=== PATIENT | male | born 1975 | race Caucasian/White ===

== ENCOUNTER 2024-04-11 13:04 | Emergency (ER) | payer OTHER ==
[~2024-04-11] VITALS: Ht 182.9 cm; Wt 81.7 kg
[~2024-04-11 13:04] MED LIST: ALBU90OI; BENZ100A PO; Clotrimazole-Be15 GM TP; HYDACE25S PR; IBUP800 PO; LISI20 PO; Mucinex600 MG PO; Norco 5-325 Ta1 EACH PO; OLAN10 PO; PANT40 PO; SERT100 PO; WIXELA 250-501 EAC1; ZYRTEC10 M2 PO
[2024-04-11] MEDS ORDERED: Albuterol 2.5 MG/3 ML VIAL INH SCH (13:15)
[2024-04-11] MEDS ORDERED: PredniSONE 20 MG Tab PO ONE (13:15)
[2024-04-11] MEDS ORDERED: Ipratropium/Albuterol SulF 2.5-0.5MG/3 ML Amp INH ONE (13:15)
[2024-04-11 13:45] LABS: BASOPHILS ABSOLUTE AUTO 0.02 K/mm3 (0.00-0.23); BASOPHILS PERCENT AUTO 0 % (0-2); EOSINOPHILS ABSOLUTE AUTO 0.28 K/mm3 (0.00-0.68); EOSINOPHILS PERCENT AUTO 4 % (0-6); Hematocrit 38.8 % (37.0-53.0); Hemoglobin 13.2 g/dL (13.5-17.5); IMMATURE GRAN ABSOLUTE AUTO 0.03 K/mm3 (0.00-0.10); IMMATURE GRAN PERCENT AUTO 0 % (0-1); LYMPHOCYTES ABSOLUTE AUTO 1.67 K/mm3 (0.84-5.20); LYMPHOCYTES PERCENT AUTO 25 % (21-46); MONOCYTES ABSOLUTE AUTO 0.47 K/mm3 (0.16-1.47); MONOCYTES PERCENT AUTO 7 % (4-13); Mean Corpuscular HGB 30.8 pg (26.0-34.0); Mean Corpuscular Volume 91 fL (80-100); Mean Platelet Volume 9.3 fL (9.1-12.4); NEUTROPHILS ABSOLUTE AUTO 4.27 K/mm3 (1.96-9.15); NEUTROPHILS PERCENT AUTO 63 % (41-73); Platelet Count 227 K/mm3 (150-400); RDW Coefficient Variation 12.9 % (11.7-14.2); RDW Standard Deviation 42.8 fL (35.1-46.3); Red Blood Cell Count 4.28 M/mm3 (4.30-5.90); White Blood Cell Count 6.74 K/mm3 (4.00-11.30)
[2024-04-11 14:07] LABS: Albumin, Blood 3.1 g/dL (3.4-5.0); Albumin/Globulin Ratio 0.9 (0.8-1.8); Bilirubin, Total 0.4 mg/dL (0.1-1.0); Bun/Creatinine Ratio 9.2 (12.0-20.0); Calcium, Blood 8.2 mg/dL (8.5-10.1); Creatinine, Blood 0.76 mg/dL (0.60-1.20); Globulin, Blood 3.6 g/dL (2.2-4.0); Magnesium, Blood 1.8 mg/dL (1.6-2.4); Potassium, Blood 3.5 mmol/L (3.5-5.5); Total Protein, Blood 6.7 g/dL (6.4-8.2)
[2024-04-11 14:48] LABS: Influenza A, PCR NEGATIVE (NEGATIVE); Influenza B, PCR NEGATIVE (NEGATIVE); Resp Syncytial Virus, PCR NEGATIVE (NEGATIVE); SARS-Cov-2 (COVID-19) PCR, MMC NEGATIVE (NEGATIVE)
[2024-04-11] MEDS ORDERED: Trimethoprim/Sulfamethoxazole DS Tab PO ONE (15:05)
[2024-04-11] MEDS ORDERED: Azithromycin 250 MG Tab PO ONE (15:05)
[2024-04-11] MEDS ORDERED: Ketorolac Tromethamine 30mg Vial IV ONE (15:10)
[2024-04-11] MEDS ORDERED: PRED20 PO (15:14)
[2024-04-11] MEDS ORDERED: AZIT250 PO (15:14)
[2024-04-11] MEDS ORDERED: ALBU90OI INH (15:14)
[2024-04-11] MEDS ORDERED: IPRAT-ALBUT 0.5-3 ML INH (15:14)
[2024-04-11] MEDS ORDERED: Ventolin5 MG/1 ML INH (15:14)
[2024-04-11] MEDS ORDERED: SULTRIDS PO (15:14)
[2024-04-11 15:43] VITALS: BP 130/72
== END 2024-04-11 15:43 | disposition home or self-care (01) ==
LOC: ER 13:04
PROVIDERS: Student in an Organized Health Care Education/Training Program
DX: J44.1 Chronic obstructive pulmonary disease with (acute) exacerbation (principal); L03.115 Cellulitis of right lower limb; Z79.899 Other long term (current) drug therapy; F43.10 Post-traumatic stress disorder, unspecified; F17.210 Nicotine dependence, cigarettes, uncomplicated
CPT/HCPCS: 0241U; 71045; 80053; 83735; 83880; 84145; 85025; 94644; 94664; A9270; J1885

== ENCOUNTER 2025-02-05 09:09 | Emergency (ER) | payer OTHER ==
[~2025-02-05] VITALS: Ht 182.9 cm; Wt 74.8 kg
[~2025-02-05 09:09] MED LIST changes: +ALBU90OI INH; +AZIT250 PO; +IPRAT-ALBUT 0.5-3 ML INH; +PRED20 PO; +SULTRIDS PO; +Ventolin5 MG/1 ML INH
[2025-02-05] MEDS ORDERED: Ondansetron HCl 2 MG / ML 2ML Vial IV PRN (09:50)
[2025-02-05] MEDS ORDERED: Ipratropium/Albuterol SulF 2.5-0.5MG/3 ML Amp INH ONE (09:55)
[2025-02-05] MEDS ORDERED: MethylPREDNISolone Sod Succ 125 MG Vial IV ONE (09:55)
[2025-02-05 09:56] LABS: BASOPHILS ABSOLUTE AUTO 0.04 K/mm3 (0.00-0.23); BASOPHILS PERCENT AUTO 1 % (0-2); EOSINOPHILS ABSOLUTE AUTO 0.17 K/mm3 (0.00-0.68); EOSINOPHILS PERCENT AUTO 3 % (0-6); Hematocrit 37.3 % (37.0-53.0); Hemoglobin 12.3 g/dL (13.5-17.5); IMMATURE GRAN ABSOLUTE AUTO 0.02 K/mm3 (0.00-0.10); IMMATURE GRAN PERCENT AUTO 0 % (0-1); LYMPHOCYTES PERCENT AUTO 23 % (21-46); MONOCYTES ABSOLUTE AUTO 0.56 K/mm3 (0.16-1.47); MONOCYTES PERCENT AUTO 9 % (4-13); Mean Corpuscular Volume 94 fL (80-100); Mean Platelet Volume 9.6 fL (9.1-12.4); NEUTROPHILS ABSOLUTE AUTO 4.02 K/mm3 (1.96-9.15); NEUTROPHILS PERCENT AUTO 65 % (41-73); Platelet Count 213 K/mm3 (150-400); RDW Standard Deviation 44.9 fL (35.1-46.3); Red Blood Cell Count 3.97 M/mm3 (4.30-5.90); White Blood Cell Count 6.21 K/mm3 (4.00-11.30)
[2025-02-05 10:21] LABS: Albumin, Blood 3.1 g/dL (3.4-5.0); Albumin/Globulin Ratio 0.9 (0.8-1.8); Bilirubin, Total 0.1 mg/dL (0.1-1.0); Bun/Creatinine Ratio 20.4 (12.0-20.0); Calcium, Blood 8.5 mg/dL (8.5-10.1); Creatinine, Blood 0.74 mg/dL (0.60-1.20); Globulin, Blood 3.4 g/dL (2.2-4.0); Potassium, Blood 4.5 mmol/L (3.5-5.5); Total Protein, Blood 6.5 g/dL (6.4-8.2)
[2025-02-05] MEDS ORDERED: DOXY100 PO (11:42)
[2025-02-05] MEDS ORDERED: PRED20 PO (11:42)
[2025-02-05 11:45] VITALS: BP 133/82
== END 2025-02-05 11:54 | disposition home or self-care (01) ==
LOC: ER 09:09
PROVIDERS: Emergency Medicine
DX: J44.1 Chronic obstructive pulmonary disease with (acute) exacerbation (principal); J44.0 Chronic obstructive pulmonary disease with (acute) lower respiratory infection; J20.9 Acute bronchitis, unspecified; F17.210 Nicotine dependence, cigarettes, uncomplicated; F43.10 Post-traumatic stress disorder, unspecified; Z79.51 Long term (current) use of inhaled steroids; Z79.52 Long term (current) use of systemic steroids; Z79.899 Other long term (current) drug therapy
CPT/HCPCS: 71046; 80053; 84484; 85025; 93005; 93010; 94640; 94664; 96374; 96375; 99285-25; J2405; J2919

== ENCOUNTER 2025-05-01 17:06 | Inpatient (IN) | payer OTHER ==
[~2025-05-01] VITALS: Ht 177.8 cm; Wt 73.7 kg
[2025-05-01] VITALS (14 sets, daily range): BP systolic 125–171; BP diastolic 87–114
[~2025-05-01 17:06] MED LIST changes: +DOXY100 PO
[2025-05-01] MEDS ORDERED: Midazolam HCL 50 MG in NS 40 ML IV PRN (17:15)
[2025-05-01] MEDS ORDERED: NS 1,000 ML IV SCH ×2 (17:15→17:55)
[2025-05-01 17:16] LABS: Calcium, Ionized (POC) 1.16 mmol/L (1.10-1.46); Chloride (POC) 105 mmol/L (98-108); Creatinine (POC) 1.3 mg/dL (0.8-1.3); Glucose (ISTAT POC) 204 mg/dL (70-99); Hematocrit (POC) 39.0 % (41.0-53.0); Hemoglobin (POC) 13.3 g/dL (13.5-17.5); Potassium (POC) 4.3 mmol/L (3.5-5.5); Sodium (POC) 142 mmol/L (135-148); Total CO2 (POC) 22 mmol/L (21-32)
[2025-05-01] MEDS ORDERED: FentaNYL Citrate 50 MCG/ML 2 ML Injection IV SCH (17:20)
[2025-05-01 17:23] LABS: BASOPHILS ABSOLUTE AUTO 0.06 K/mm3 (0.00-0.23); BASOPHILS PERCENT AUTO 1 % (0-2); EOSINOPHILS ABSOLUTE AUTO 0.19 K/mm3 (0.00-0.68); EOSINOPHILS PERCENT AUTO 2 % (0-6); Hematocrit 39.5 % (37.0-53.0); Hemoglobin 12.3 g/dL (13.5-17.5); IMMATURE GRAN ABSOLUTE AUTO 0.45 K/mm3 (0.00-0.10); IMMATURE GRAN PERCENT AUTO 4 % (0-1); LYMPHOCYTES ABSOLUTE AUTO 3.94 K/mm3 (0.84-5.20); LYMPHOCYTES PERCENT AUTO 35 % (21-46); MONOCYTES ABSOLUTE AUTO 0.83 K/mm3 (0.16-1.47); MONOCYTES PERCENT AUTO 7 % (4-13); Mean Corpuscular HGB Conc 31.1 g/dL (31.5-36.5); Mean Corpuscular Volume 94 fL (80-100); NEUTROPHILS ABSOLUTE AUTO 5.87 K/mm3 (1.96-9.15); NEUTROPHILS PERCENT AUTO 52 % (41-73); NRBC ABSOLUTE 0.00 K/mm3 (0.00-0.02); NRBC Auto 0.0 /100 WBC (0.0-0.2); Platelet Count 229 K/mm3 (150-400); RDW Coefficient Variation 13.5 % (11.7-14.2); RDW Standard Deviation 46.1 fL (35.1-46.3)
[2025-05-01 17:28] LABS: pH Blood Venous 7.03 (7.34-7.37)
[2025-05-01] MEDS ORDERED: FentaNYL Citrate 50 MCG/ML 2 ML Injection IV ONE (17:30)
[2025-05-01] MEDS ORDERED: Midazolam HCl 1MG / ML 2ML Vial IV ONE (17:30)
[2025-05-01 17:31] LABS: Source, Urine Clean Catch
[2025-05-01 17:34] LABS: Bilirubin, Urine Neg (Neg); Color, Urine Yellow (P-Yellow); Glucose Qualitative, Urine Neg (Neg); Ketones, Urine Neg (Neg); Leukocyte Esterase, Urine Neg (Neg); Protein, Urine 4+ (Neg); Specific Gravity, Urine 1.025 (1.003-1.022); Urobilinogen, Urine NORM (Normal)
[2025-05-01 17:49] LABS: Acetaminophen, Random 3.4 ug/mL (10.0-30.0); Ethanol (Alcohol), Blood, Med <3 mg/dL; Salicylate <1.7 mg/dL (2.8-20.0); Thyroid Stimulating Hormone 3.480 uIU/mL (0.360-4.800)
[2025-05-01 17:50] LABS: Alanine Aminotransfer (ALT/SGP 45 U/L (12-78); Albumin, Blood 3.3 g/dL (3.4-5.0); Albumin/Globulin Ratio 1.0 (0.8-1.8); Anion Gap 15 mmol/L (3-11); Aspartate Aminotrans (AST/SGOT 80 U/L (12-37); Bilirubin, Total 0.8 mg/dL (0.1-1.0); Blood Urea Nitrogen 12 mg/dL (8-24); CO2, Blood 21 mmol/L (21-32); Calcium, Blood 8.3 mg/dL (8.5-10.1); Chloride, Blood 107 mmol/L (98-108); Creatinine, Blood 1.18 mg/dL (0.60-1.20); Globulin, Blood 3.4 g/dL (2.2-4.0); Glucose, Blood 211 mg/dL (70-99); Potassium, Blood 4.2 mmol/L (3.5-5.5); Sodium, Blood 139 mmol/L (136-145); Total Protein, Blood 6.7 g/dL (6.4-8.2)
[2025-05-01 17:51] LABS: U Amphetamine Screen DETECTED; U Barbituate Screen Not Detected; U Benzodiazapine Screen Not Detected; U Buprenorphine Screen Not Detected; U Cannabinoids Screen Not Detected; U Cocaine Screen Not Detected; U Methadone Screen Not Detected; U Methamphetamine Screen DETECTED; U Opiates Screen Not Detected; U Oxycodone Screen Not Detected; U Phencyclidine Screen Not Detected
[2025-05-01] MEDS ORDERED: Ipratropium/Albuterol SulF 2.5-0.5MG/3 ML Amp ONE (18:31)
[2025-05-01] MEDS ORDERED: Albuterol 2.5 MG/3 ML VIAL ONE (18:32)
[2025-05-01] MEDS ORDERED: Ipratropium/Albuterol SulF 2.5-0.5MG/3 ML Amp INH ONE (18:35)
[2025-05-01] MEDS ORDERED: Albuterol 2.5 MG/3 ML VIAL INH ONE (18:35)
[2025-05-01] MEDS ORDERED: Cetylpyridinium Chloride 1 EA MISC MT SCH (18:50)
[2025-05-01] MEDS ORDERED: Ipratropium/Albuterol SulF 2.5-0.5MG/3 ML Amp INH SCH ×2 (18:50→20:45)
[2025-05-01 19:07] LABS: pH Blood Venous 7.31 (7.34-7.37)
[2025-05-01] MEDS ORDERED: Ondansetron HCl 2 MG / ML 2ML Vial IV PRN (20:45)
[2025-05-02] VITALS (95 sets, daily range): BP systolic 112–176; BP diastolic 75–126
[2025-05-02] MEDS ORDERED: Hydrogen Peroxide 1.5 % Solution MT SCH
[2025-05-02] MEDS ORDERED: Diazepam 5 MG / ML 2ML SYR IV ONE (01:10)
[2025-05-02 03:10] LABS: pH Blood Venous 7.45 (7.34-7.37)
[2025-05-02 03:38] LABS: Hematocrit 36.8 % (37.0-53.0); Hemoglobin 12.3 g/dL (13.5-17.5); Mean Corpuscular HGB Conc 33.4 g/dL (31.5-36.5); NRBC ABSOLUTE 0.00 K/mm3 (0.00-0.02); NRBC Auto 0.0 /100 WBC (0.0-0.2); Platelet Count 186 K/mm3 (150-400); RDW Coefficient Variation 13.8 % (11.7-14.2); RDW Standard Deviation 44.2 fL (35.1-46.3)
[2025-05-02 03:39] LABS: Mean Corpuscular Volume 87 fL (80-100)
[2025-05-02 04:00] LABS: Alanine Aminotransfer (ALT/SGP 47.0 U/L (12-78); Albumin, Blood 3.1 g/dL (3.4-5.0); Albumin/Globulin Ratio 0.9 (0.8-1.8); Anion Gap 8.0 mmol/L (3-11); Aspartate Aminotrans (AST/SGOT 71.0 U/L (12-37); Bilirubin, Total 1.0 mg/dL (0.1-1.0); Blood Urea Nitrogen 12.0 mg/dL (8-24); CO2, Blood 25.0 mmol/L (21-32); Calcium, Blood 7.8 mg/dL (8.5-10.1); Chloride, Blood 109.0 mmol/L (98-108); Creatinine, Blood 0.79 mg/dL (0.60-1.20); Globulin, Blood 3.5 g/dL (2.2-4.0); Glucose, Blood 138.0 mg/dL (70-99); Magnesium, Blood 1.7 mg/dL (1.6-2.4); Potassium, Blood 4.0 mmol/L (3.5-5.5); Sodium, Blood 138.0 mmol/L (136-145); Total Protein, Blood 6.6 g/dL (6.4-8.2)
[2025-05-02 04:03] LABS: BAND PERCENT MAN 8 % (0-8); BASOPHILS ABSOLUTE MAN 0.00 K/mm3 (0.00-0.23); BASOPHILS PERCENT MAN 0 % (0-2); EOSINOPHILS ABSOLUTE MAN 0.00 K/mm3 (0.00-0.68); EOSINOPHILS PERCENT MAN 0 % (0-6); LYMPHOCYTES ABSOLUTE MAN 0.16 K/mm3 (0.84-5.20); LYMPHOCYTES PERCENT MAN 1 % (21-46); MONOCYTES ABSOLUTE MAN 0.33 K/mm3 (0.16-1.47); MONOCYTES PERCENT MAN 2 % (4-13); NEUTROPHILS ABSOLUTE MAN 16.43 K/mm3 (1.96-9.15); SEG NEUTROPHILS PERCENT MAN 89 % (41-73)
--- NOTE | 2025-05-02 05:24 | NUR ---
SHIFT SUMMARY PT ARRIVED TO ICU FROM ER AT 2039. ON 25 OF FENTANYL AND 2 OF VERSED. ETT REMAINS IN PLACE. PATIENT STARTED MOVING SPONTANEOUSLY. RESTRAINTS IN PLACE. PATIENT BEGAN HAVING MYOCLONIC MOVEMENTS. DR QUINONES NOTIFIED. ORDERED TO TRANSITION DOWN ON FENTANYL AND TITRATE UP VERSED, 1G OF KEPPRA ORDERED. SPASTIC MYOCLONIC MOVEMENTS BECAME MORE FREQUENT, PT BECAME HYPERTENSIVE AND TACHYCARDIC. HOSPITALIST NOTIFIED. FENTANYL SWITCHED TO PROPOFOL AND VALIUM ORDERED. SPASTIC MOVEMENTS DECREASING IN FREQUENCY AND INTENSITY. NSR ON CONTINOUS CARDIAC MONITORING AND NORMOTENSIVE. WILL WITHDRAW WEAKLY TO PAINFUL STIMULUS. ETT REMAINS IN PLACE. ACVC, FIO2 30%, RR 18, PEEP 5, TV 450. OG TO LOW INTERMITTENT SUCTION. COURSE LUNG SOUNDS. MODERATE AMOUNT OF ORAL SECRETIONS. SEGAL IN PLACE, DRAINING TO GRAVITY, YELLOW IN COLOR. ABRASIONS AND REDNESS NOTED ON SKIN, PICTURES IN CHART. TURNING Q2HRS. CARE PLAN ONGOING.
[2025-05-02] MEDS ORDERED: Pantoprazole Sodium 40 MG Injection IV SCH (06:00)
[2025-05-02] MEDS ORDERED: Enoxaparin 40 MG/0.4 ML SYR SC SCH (09:00)
--- NOTE | 2025-05-02 10:28 | NUR ---
PT UNDERGOING ECHO AT THIS TIME, WITH PROPOFOL @ 20MCG/KG PT IS TWITCHING MORE THAN PREVIOUSLY. MORE FULL BODY, LEFT SIDE > RIGHT. PT EXPERIENCING DOLL'S EYES WITH EXAM, NO CORNEAL REFLEX, NO RESPONSE TO PAINFUL STIMULI, EXTREMITIES ARE FLACCID. LUZMA WITH GOOD UO, NGT TO LIS. MOTHER CALLED FROM [place] TO CHECK ON HIM.
[2025-05-02] MEDS ORDERED: Ampicillin Sod/Sulbactam Sod 3 GM in NS 100 ML IV SCH (10:59)
--- NOTE | 2025-05-02 12:54 | NUR ---
FRIEDA IS PREPPED FOR THE EEG, SEDATION IS OFF CURRENTLY. THERE WAS AN INCREASE IN THE TWITCHING DURING PLACEMENT OF ELECTRODES BY DIRECTOR AMBULATORY KRISHNA. HAS RESOLVED. SEDATION HAS BEEN OFF FOR ABOUT 10 MINUTES, REMAINS STILL WITH NO PURPOSEFUL MOVEMENT NOTED.
[2025-05-02] MEDS ORDERED: Artificial Tear Opth Oint 3.5 GM BOTHEYES PRN (16:45)
--- NOTE | 2025-05-02 16:46 | NUR ---
INCREASE IN MYOCLONIC JERKING, MIDAZOLAM AND PROPOFOL INCREASED, SEE FLOWSHEET S/O AT THE BEDSIDE UNDERSTANDS HE HAS BRAIN INJURY. NO MOVEMENT INITIATED FROM EXTREMITIES OR FROM HEAD, TRUNK OR SHOULDERS. REMAINS AFEBRILE, HEART RATE 110S, BP STABLE.
--- NOTE | 2025-05-02 17:12 | NUR ---
SHIREEN PATIENT'S S/O AT BEDSIDE WHEN MADE ROUNDS, SPOKE TO HER ABOUT THE EEG AND THE PROFOUND BRAIN INJURY. HER ARGUMENT IS THAT HE WAS NOT "DOWN" THAT LONG. AND SHE TALKED ABOUT IF HIS "SHORTNESS OF BREATH" COULD HAVE BEEN AN ISSUE. SHE IS TEARFUL, ASKS THAT EVERYTHING CONTINUES TO BE DONE AND THAT HIS MOM IS IN AGREEMENT.
[2025-05-03] VITALS (48 sets, daily range): BP systolic 110–134; BP diastolic 68–87
[2025-05-03 03:28] LABS: BASOPHILS ABSOLUTE AUTO 0.02 K/mm3 (0.00-0.23); BASOPHILS PERCENT AUTO 0 % (0-2); EOSINOPHILS ABSOLUTE AUTO 0.01 K/mm3 (0.00-0.68); EOSINOPHILS PERCENT AUTO 0 % (0-6); Hematocrit 32.4 % (37.0-53.0); Hemoglobin 10.6 g/dL (13.5-17.5); IMMATURE GRAN ABSOLUTE AUTO 0.07 K/mm3 (0.00-0.10); IMMATURE GRAN PERCENT AUTO 1 % (0-1); LYMPHOCYTES ABSOLUTE AUTO 0.59 K/mm3 (0.84-5.20); LYMPHOCYTES PERCENT AUTO 4 % (21-46); MONOCYTES ABSOLUTE AUTO 0.41 K/mm3 (0.16-1.47); MONOCYTES PERCENT AUTO 3 % (4-13); Mean Corpuscular HGB Conc 32.7 g/dL (31.5-36.5); Mean Corpuscular Volume 90 fL (80-100); NEUTROPHILS ABSOLUTE AUTO 13.39 K/mm3 (1.96-9.15); NEUTROPHILS PERCENT AUTO 92 % (41-73); NRBC ABSOLUTE 0.00 K/mm3 (0.00-0.02); NRBC Auto 0.0 /100 WBC (0.0-0.2); Platelet Count 150 K/mm3 (150-400); RDW Coefficient Variation 14.7 % (11.7-14.2); RDW Standard Deviation 48.5 fL (35.1-46.3)
--- NOTE | 2025-05-03 03:43 | NUR ---
SPUTUM SAMPLE OBTAINED AND SENT TO LAB AT 0330.
[2025-05-03 03:46] LABS: Alanine Aminotransfer (ALT/SGP 31.0 U/L (12-78); Albumin, Blood 2.4 g/dL (3.4-5.0); Albumin/Globulin Ratio 0.8 (0.8-1.8); Anion Gap 7.0 mmol/L (3-11); Aspartate Aminotrans (AST/SGOT 43.0 U/L (12-37); Bilirubin, Total 0.5 mg/dL (0.1-1.0); Blood Urea Nitrogen 12.0 mg/dL (8-24); CO2, Blood 28.0 mmol/L (21-32); Calcium, Blood 7.9 mg/dL (8.5-10.1); Chloride, Blood 112.0 mmol/L (98-108); Creatinine, Blood 0.67 mg/dL (0.60-1.20); Globulin, Blood 3.1 g/dL (2.2-4.0); Glucose, Blood 138.0 mg/dL (70-99); Potassium, Blood 4.2 mmol/L (3.5-5.5); Sodium, Blood 143.0 mmol/L (136-145); Total Protein, Blood 5.5 g/dL (6.4-8.2)
--- NOTE | 2025-05-03 05:36 | NUR ---
SHIFT SUMMARY PT INTUBATED AND SEDATED ON PROPOFOL AND VERSED GTT. NO MYOCLONIC JERKING NOTED THIS SHIFT. NEURO STATUS REMAINED RELATIVELY THE SAME T/O SHIFT. SEE ASSESSMENT FOR IN DEPTH ASSESSMENT. VENT SETTINGS REMAINED THE SAME T/O SHIFT, SATS > 92%, LUNG SOUNDS CLEAR. VSS W/ HR FROM 90-100'S, MAPS > 65. TEMP SEGAL IN PLACE. NO BM'S THIS SHIFT. CHG BATH DONE. NO ACUTE EVENTS. CLA CALLED AND GIVEN UPDATE. PLAN FOR FAMILY (MOM AND ADULT CHILD) TO GET HERE SOME TIME TODAY FROM [place] TO DISCUSS PLAN OF CARE GOING FORWARD.
[2025-05-03] MEDS ORDERED: CefTRIAXone Sodium 1,000 MG in NS 100 ML IV SCH (12:00)
[2025-05-03] MEDS ORDERED: Magnesium Hydroxide Conc 10 ML UDC PT PRN (14:05)
[2025-05-03] MEDS ORDERED: Docusate Sodium Liquid 100 MG UDC PT PRN (14:05)
--- NOTE | 2025-05-03 15:46 | NUR ---
Patient remains on ICU due unresponsiveness after PEA arrest in field. Gave sedation holiday this morning, patient had fluttering of eyes and reptitive movement of lips and took breaths above ventilator set rate and had a cough after ~12 min into sedation interuption. Otherwise no purposeful movement. Repeat head CT completed this morning, read was unremarkible per MD, patient transfering to [facility] for continous EEG for further workup of mental status. Report called to Radha Mukherjee at 15:30, Kathie from [facility] aware of transfer, as well as family. Patient in care of transport team at 15:50, recieving RN updated of patient enroute. No belingings at bedside for transfer.
== END 2025-05-03 16:15 | disposition short-term general hospital (02) | DRG 917 ==
LOC: ER 17:06 → ICUE 18:35
PROVIDERS: Emergency Medicine; Nurse Practitioner Acute Care; ADMIT Student in an Organized Health Care Education/Training Program
PROC: 0BH17EZ Insertion of Endotracheal Airway into Trachea, Via Natural or Artificial Opening (ICD-10-PCS; principal; 2025-05-01)
PROC: 0DH67UZ Insertion of Feeding Device into Stomach, Via Natural or Artificial Opening (ICD-10-PCS; 2025-05-01)
PROC: 5A12012 Performance of Cardiac Output, Single, Manual (ICD-10-PCS; 2025-05-01)
PROC: 3E03329 Introduction of Other Anti-infective into Peripheral Vein, Percutaneous Approach (ICD-10-PCS; 2025-05-01)
PROC: 5A1945Z Respiratory Ventilation, 24-96 Consecutive Hours (ICD-10-PCS; 2025-05-01)
DX: T43.651A Poisoning by methamphetamines accidental (unintentional), initial encounter (principal); G93.41 Metabolic encephalopathy; J96.01 Acute respiratory failure with hypoxia; J96.02 Acute respiratory failure with hypercapnia; I46.8 Cardiac arrest due to other underlying condition; J44.1 Chronic obstructive pulmonary disease with (acute) exacerbation; E87.20 Acidosis, unspecified; M96.A1 Fracture of sternum associated with chest compression and cardiopulmonary resuscitation; I10 Essential (primary) hypertension; F31.9 Bipolar disorder, unspecified; F43.10 Post-traumatic stress disorder, unspecified; F17.210 Nicotine dependence, cigarettes, uncomplicated; Z90.49 Acquired absence of other specified parts of digestive tract; Z79.899 Other long term (current) drug therapy
CPT/HCPCS: 31720; 36415; 51702; 70450; 71045; 71260; 72125; 80047; 80053; 80320; 81001; 82550; 82803; 83605; 83735; 84439; 84443; 84484; 85014; 85025; 93005; 93010; 93306; 94002; 94003; 94640; 94760; 94762; 95819; 99291-25; 99292; A9270; G0480; J0295; J0456; J0696; J1650; J1953; J2250; J2470; J2704; J2919; J3010; J3360; J7030; J7050; J7120; Q9967